=== PATIENT | male | born 1965 | race Caucasian/White ===

== ENCOUNTER 2019-06-24 20:52 | Emergency (ER) | payer OTHER, SELFPAY ==
[~2019-06-24 20:52] MED LIST: Iopamidol-370 76% 500 ML 1 ML ONE
[2019-06-24 21:55] LABS: #Basophils 0.1 thou/uL (0.0-0.2); #Eosinphils 0.1 thou/uL (0.0-0.7); #Lymphocytes 1.5 thou/uL (1.20-3.40); #Monocytes 0.6 thou/uL (0.11-0.59); #Neutrophils 4.6 thou/uL (1.40-6.50); %Basophils 1.1 % (0.0-1.0); %Eosinophils 1.3 % (0.0-10.0); %Lymphocytes 22.3 % (21.0-51.0); %Monocytes 8.7 % (0.0-10.0); %Neutrophils 66.5 % (42.0-75.0); Hemoglobin 14.8 g/dL (14.0-18.0); Mean Corpuscular HGB CONC 33.2 g/dL (32.0-36.0); Mean Corpuscular Hemoglobin 30.3 pg (27.0-31.0); Mean Corpuscular Volume 91.4 fL (78.0-98.0); Mean Platelet Volume 7.4 fL (7.4-10.4); Platelet Count 145 thou/uL (130-400); RBC Distribution Width 12.4 % (11.5-14.5); Red Blood Cell (RBC) Count 4.89 mill/uL (4.70-6.10); White Blood Cell (WBC) Count 6.8 thou/uL (4.8-10.8)
[2019-06-24 22:16] LABS: ALT (SGPT) 18 U/L (8-55); AST (SGOT) 20 U/L (5-34); Albumin 3.9 g/dL (3.5-5.0); Alkaline Phosphatase 51 U/L (40-110); Anion Gap 11 mmol/L (10-20); BUN (Urea Nitrogen) 13 mg/dL (8.4-25.7); CK (CPK) 104 U/L (30-200); Calc. Creatinine Clearance 0 mL/min (70-130); Calcium 8.6 mg/dL (7.8-10.44); Carbon Dioxide 30 mmol/L (22-29); Chloride 101 mmol/L (98-107); Estimated GFR-MDRD 56; Globulin 2.4 g/dL (2.4-3.5); Glucose 100 mg/dL (70-105); Lipase 35 U/L (8-78); Potassium 3.6 mmol/L (3.5-5.1); Protein, Total 6.3 g/dL (6.0-8.3); Sodium 138 mmol/L (136-145)
[2019-06-24] MEDS ORDERED: Nitroglycerin 50 MG/250 ML BOT 250 ML ONE (22:20)
[2019-06-24] MEDS ORDERED: Esmolol 2,500 MG/250 ML 250 ML ONE (22:24)
--- NOTE | 2019-06-24 22:29 | CT ---
CT arteriogram chest with IV contrast and 3-D imaging CT arteriogram abdomen with IV contrast and 3-D imaging HISTORY: Chest pain. FINDINGS: Intimal flap of the aorta begins at the level of the aortic root and extends along the nikki th of the ascending and descending thoracic aorta and into the abdominal aorta and left iliac artery. The false lumen is larger than the true lumen. Small amount of fluid is present within the pe ricardial space near the aortic root. The dissection extends into the left subclavian artery where the lumen is compromised. Visceral arteries of the abdomen arise from the true lumen. There is a 0.6 cm of pleural noncalcified nodule within the lateral segment right middle lung lobe. The pelvis was not imaged. IMPRESSION: Large type I aortic dissection extending to the aortic root with small amount of pericard ial fluid worrisome for hemorrhage. Please consider immediate surgical evaluation. Small noncalcified right middle lobe lung nodule. Consider follow-up CT chest in one year to evaluate for stability. Findings were called to Dr. Mclean in the emergency department at 2219 hours. Code CR.
[2019-06-24] MEDS ORDERED: Morphine 4 MG/ML VIAL ONE ×2 (22:32→23:16)
[2019-06-24] MEDS ORDERED: Ondansetron PF 4 MG/2 ML Vial ONE (22:44)
== END 2019-06-24 23:47 | disposition short-term general hospital (02) ==
LOC: ERS 20:52
DX: I71.01 Dissection of thoracic aorta (principal); E78.5 Hyperlipidemia, unspecified; E78.00 Pure hypercholesterolemia, unspecified; F17.220 Nicotine dependence, chewing tobacco, uncomplicated; I10 Essential (primary) hypertension; Z79.899 Other long term (current) drug therapy
CPT/HCPCS: 36415; 71275; 72191; 74175; 80053; 82550; 83690; 84484; 85025; 93005; 94760; 96365; 96374; 96375; 99292; J2270; J2405; Q9967

== ENCOUNTER 2022-03-17 20:00 | Emergency (ER) | payer OTHER ==
[2022-03-17 20:33] LABS: #Eosinphils 0.1 thou/uL (0.0-0.7); #Lymphocytes 1.4 thou/uL (1.20-3.40); #Monocytes 0.7 thou/uL (0.11-0.59); #Neutrophils 4.9 thou/uL (1.40-6.50); %Basophils 0.6 % (0.0-1.0); %Eosinophils 1.1 % (0.0-10.0); %Lymphocytes 19.8 % (21.0-51.0); %Monocytes 9.2 % (0.0-10.0); %Neutrophils 69.2 % (42.0-75.0); Hemoglobin 14.5 g/dL (14.0-18.0); Mean Corpuscular Hemoglobin 32.7 pg (27.0-31.0); Mean Corpuscular Volume 96.2 fL (78.0-98.0); Mean Platelet Volume 7.3 fL (7.4-10.4); Platelet Count 210 thou/uL (130-400); RBC Distribution Width 12.3 % (11.5-14.5); Red Blood Cell (RBC) Count 4.44 mill/uL (4.70-6.10); White Blood Cell (WBC) Count 7.1 thou/uL (4.8-10.8)
[2022-03-17 21:10] LABS: AST (SGOT) 27 U/L (5-34); Albumin 4.5 g/dL (3.5-5.0); Alkaline Phosphatase 47 U/L (40-110); Anion Gap 16 mmol/L (10-20); BUN (Urea Nitrogen) 13 mg/dL (8.4-25.7); Calc. Creatinine Clearance 0 mL/min (70-130); Calcium 9.3 mg/dL (7.8-10.44); Carbon Dioxide 28 mmol/L (22-29); Chloride 100 mmol/L (98-107); Estimated GFR 51; Globulin 2.7 g/dL (2.4-3.5); Glucose 131 mg/dL (70-105); Lipase 35 U/L (8-78); Potassium 4.1 mmol/L (3.5-5.1); Protein, Total 7.2 g/dL (6.0-8.3); Sodium 140 mmol/L (136-145)
[2022-03-17] MEDS ORDERED: Ondansetron PF 4 MG/2 ML Vial ONE (22:00)
[2022-03-17] MEDS ORDERED: Morphine 4 MG/ML VIAL ONE (22:00)
[2022-03-17 22:11] LABS: PTT 25.6 sec (22.9-36.1); Prothrombin Time 12.8 sec (12.0-14.7)
[2022-03-17 22:18] LABS: ALT (SGPT) 18 U/L (8-55)
[2022-03-17 22:35] LABS: Bilirubin, Total 0.8 mg/dL (0.2-1.2)
[2022-03-17] MEDS ORDERED: HYDROmorphone 0.5 MG/0.5 ML SYRINGE ONE (22:37)
[2022-03-17] MEDS ORDERED: niCARdipine 25 MG/10 ML VIAL ONE (22:45)
[2022-03-17 23:37] LABS: SARS-CoV-2 NAA Rapid Test Not Detected (NotDetected)
[2022-03-18] MEDS ORDERED: HYDROmorphone 0.5 MG/0.5 ML SYRINGE ONE (00:27)
[2022-03-18] MEDS ORDERED: niCARdipine 25 MG/10 ML VIAL ONE (00:33)
== END 2022-03-18 00:51 | disposition short-term general hospital (02) ==
LOC: ERS 20:00
DX: I71.00 Dissection of unspecified site of aorta (principal); I35.1 Nonrheumatic aortic (valve) insufficiency; E78.00 Pure hypercholesterolemia, unspecified; I10 Essential (primary) hypertension; Z20.822 Contact with and (suspected) exposure to COVID-19; F17.220 Nicotine dependence, chewing tobacco, uncomplicated; Z79.82 Long term (current) use of aspirin; Z79.899 Other long term (current) drug therapy
CPT/HCPCS: 36415; 71045; 71275; 74174; 80053; 83690; 84484; 85025; 85610; 85730; 93005; 96374; 96375; 96376; J1170; J2270; J2405; Q9967; U0002